=== PATIENT | male | born 1980 | race Hispanic/Latino ===

== ENCOUNTER 2016-04-14 21:01 | Emergency (ER) | payer OTHER ==
[~2016-04-14] VITALS: Ht 182.9 cm; Wt 149.7 kg
[~2016-04-14 21:01] MED LIST: AMOXIL500 MG PO; BACTRIM DS 8001 TAB PO; CLINDAMYCIN300 MG PO; ENDOCET 325 MG-1 TA1 PO; HYDROCODONE/ACE1 TA1 PO; IBUPROFEN800 M1 PO; KEFLEX500 MG PO; MOTRIN 600 MG600 MG PO; NORCO 325 MG-51 TAB PO; PERCOCET 325 MG1 TA2 PO; PERCOCET 5-3251 EACH PO; TRAMADOL50 MG PO; VICODIN 500 MG-1 TAB PO; VOLTAREN75 MG PO
[2016-04-14 21:07] VITALS: BP 148/81
[2016-04-14] MEDS ORDERED: PERCOCET 5-3251 EACH PO (22:20)
[2016-04-14] MEDS ORDERED: AMOXICILLIN875 M1 PO (22:20)
[2016-04-14] MEDS ORDERED: IBUPROFEN800 M1 PO (22:20)
--- NOTE | 2016-04-14 22:21 | ED THROAT/DENTAL COMPLAINT ---
History of Present Illness General Chief Complaint: Sore Throat, Dental Pain Stated Complaint: TOOTHACHE Source: patient Exam Limitations: no limitations Vital Signs & Intake/Output Vital Signs & Intake/Output Vital Signs Date Time Temp Pulse Resp B/P Pulse O2 O2 Flow FiO2 Ox Delivery Rate 04/147 Room Air 04/14 2106 98.6 100 16 148/81 97 Room Air ED Intake and Output 04/15 0000 04/14 1200 Intake Total Output Total Balance Patient 330 lb Weight Allergies Coded Allergies: NO KNOWN ALLERGIES (11/21/15) Reconcile Medications Amoxicillin 875 MG TABLET 1 TAB PO BID dental Ibuprofen 800 MG TABLET 1 TAB PO Q8H PRN pain Ibuprofen 800 MG TABLET 1 TAB PO Q8H PRN pain Oxycodone HCl/Acetaminophen (Percocet 5-325 MG Tablet) 5 MG-325 MG TABLET 1 TAB PO Q6H PRN PAIN Triage Note: PT TO ED FOR TOOTHACHE SINCE THURSDAY. Triage Nurses Notes Reviewed? yes HPI: patient is a 35-year-old male presents complaining of left upper dental pain. Patient reports that he was outside in the cold and felt increasing sharp/ throbbing pain. Patient reports that he has had a chipped tooth chronically, the pain has increased over the past couple of days. Positive cold sensitivity. Patient also occasionally has a foul taste in his mouth. Patient has been taking ibuprofen with mild to moderate improvement. Last dose was approximately 2 hours ago. Patient denies fevers, facial swelling, difficulty swallowing. (SANTI MEEHAN) Past History Travel History Traveled to [place] past 21 day No Medical History Any Pertinent Medical History? 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 No (SANTI MEEHAN) Review of Systems Review of Systems Constitutional: Denies: chills, fever. EENTM: Reports: see HPI. Respiratory: Denies: short of breath. Cardiovascular: Denies: chest pain. GI: Denies: abdominal pain. Musculoskeletal: Reports: no symptoms. Skin: Reports: no symptoms. Neurological/Psychological: Reports: no symptoms. Hematologic/Endocrine: Reports: no symptoms. Immunologic/Allergic: Reports: no symptoms. (SANTI MEEHAN) Physical Exam Physical Exam General Appearance: well developed/nourished, alert, awake Head: atraumatic, normal appearance, no facial swelling Eyes: Bilateral: normal appearance, PERRL, EOMI. Ears: Bilateral: canal normal, Tympanic normal. Nose: normal inspection Mouth/Throat: poor dentition diffusely. See diagram Neck: normal inspection, supple, full range of motion Cardiovascular/Respiratory: no respiratory distress Back: normal inspection, normal range of motion Neurologic/Psych: no motor/sensory deficits, awake, alert, oriented x 3, normal gait, normal mood/affect Skin: intact, normal color, warm/dry Diagram Dental: 1) Decayed teeth. Mild gingival inflammation. No visible or palpable abscess. 2) Tenderness Core Measures ACS in differential dx? No Severe Sepsis Present: No Septic Shock Present: No (SANTI MEEHAN) Progress Differential Diagnosis: carious tooth, odontogenic abscess Plan of Care: Patient afebrile, nontoxic-appearing, no facial swelling present. There stable for outpatient follow-up with a dentist. (SANTI MEEHAN) Departure Departure Time of Disposition: 2217 Disposition: HOME OR SELF CARE Condition: Stable Clinical Impression Primary Impression: Toothache Referrals: PATIENT HAS NO PRIMARY CARE DR (PCP/Family) Additional Instructions: Follow-up with one of the dental clinics listed in your discharge work. Call today for appointment. Return to the emergency department if facial swelling, difficulty swallowing, fevers, or worsening of symptoms. Departure Forms: Customer Survey General Discharge Information Prescriptions: Current Visit Scripts Ibuprofen 1 TAB PO Q8H PRN pain #30 TAB Amoxicillin 1 TAB PO BID #14 TAB Oxycodone HCl/Acetaminophen (Percocet 5-325 MG Tablet) 1 TAB PO Q6H PRN PAIN #10 TAB (SANTI MEEHAN) PA/MUSHROOM FARMER Co-Sign Statement Statement: ED Attending supervision documentation- [] I saw and evaluated the patient. I have also reviewed all the pertinent lab results and diagnostic results. I agree with the findings and the plan of care as documented in the PA's/MUSHROOM FARMER's documentation. [X] I have reviewed the ED Record and agree with the PA's/MUSHROOM FARMER's documentation. [] Additions or exceptions (if any) to the PAs/MUSHROOM FARMER's note and plan are summarized below: [] (IRA WOLF,PAU Huggins)
== END 2016-04-14 22:28 ==
LOC: ERH 21:01
DX: K08.89 Other specified disorders of teeth and supporting structures (principal)

== ENCOUNTER 2016-04-26 12:50 | Emergency (ER) | payer OTHER ==
[~2016-04-26] VITALS: Ht 182.9 cm; Wt 149.7 kg
[~2016-04-26 12:50] MED LIST changes: +AMOXICILLIN875 M1 PO
--- NOTE | 2016-04-26 14:24 | ED UPPER/LOWER EXTREMITY COMPL ---
History of Present Illness General Chief Complaint: Lower Extremity Problems Stated Complaint: BILATERAL LEG SWELLING Source: patient Exam Limitations: no limitations Vital Signs & Intake/Output Vital Signs & Intake/Output Vital Signs Date Time Temp Pulse Resp B/P Pulse O2 O2 Flow FiO2 Ox Delivery Rate 04/26 1605 96.8 81 18 130/74 95 Room Air 04/26 1258 98.0 88 20 120/78 97 Room Air Allergies Coded Allergies: NO KNOWN ALLERGIES (04/26/16) Reconcile Medications Amoxicillin 875 MG TABLET 1 TAB PO BID dental Cephalexin (Keflex) 500 MG CAPSULE 1 CAP PO TID INFECTION Ibuprofen 800 MG TABLET 1 TAB PO Q8H PRN pain Ibuprofen 800 MG TABLET 1 TAB PO Q8H PRN pain Oxycodone HCl/Acetaminophen (Percocet 5-325 MG Tablet) 5 MG-325 MG TABLET 1 TAB PO BID PRN PAIN Oxycodone HCl/Acetaminophen (Percocet 5-325 MG Tablet) 5 MG-325 MG TABLET 1 TAB PO Q6H PRN PAIN Triage Note: TRIAGE: PT TO ER C/C BLE SWELLING X 1 WEEK. FROM KNEES TO FEET. DENIES PAIN WHILE SEATED, REPORTS TINGLING SENSATION WHILE SEATED BUT STATES PAIN IS 7/10 WITH WALKING. TOOK IBUPROFEN THIS MORNING WITH SOME RELIEF NOTED. Triage Nurses Notes Reviewed? yes HPI: 35-year-old male arrived through triaged to room 9 for evaluation of left lower extremity edema, redness and pain in his left calf that started a week ago. History of cellulitis and was concerned of reoccurrence. He denies any fever, chills, nausea, vomiting. He denies any recent travel but he does smoke cigarettes on a daily basis. He denies any recent illness. The pain in his leg as a cramping sensation moderate at this time. (FANY BLANCO APRN) Past History Travel History Traveled to [place] past 21 day No Medical History Any Pertinent Medical History? 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 No (FANY BLANCO APRN) Review of Systems Review of Systems Constitutional: Reports: no symptoms. EENTM: Reports: no symptoms. Respiratory: Reports: no symptoms. Cardiovascular: Reports: edema. Gastrointestinal/Abdominal: Reports: no symptoms. Genitourinary: Reports: no symptoms. Musculoskeletal: Reports: see HPI, muscle pain. Skin: Reports: erythema. Neurological/Psychological: Reports: no symptoms. Hematologic/Endocrine: Reports: no symptoms. Immunological: Reports: no symptoms. All Other Systems: Reviewed and Negative (FANY BLANCO APRN) Physical Exam Physical Exam General Appearance: well developed/nourished, mild distress Head: atraumatic Eyes: Bilateral: PERRL, EOMI. Ears, Nose, Throat: normal pharynx, normal ENT inspection, hearing grossly normal Neck: normal inspection, supple Cardiovascular/Respiratory: regular rate/rhythm Peripheral Pulses: 2+ radial (R), 2+ radial (L), 2+ dorsalis pedis (R), 2+ dorsalis pedis (L) Back: normal inspection Leg Left: normal range of motion, swelling, tenderness, ERYTHEMA Leg Right: normal range of motion, normal inspection Skin: intact, normal color, warm/dry Lymphatic: no anterior cervical dada (FANY BLANCO APRN) Progress Differential Diagnosis: cellulitis, DVT, VENOUS INSUFFICIENCY Plan of Care: Orders Procedure Date/time Status PARTIAL THROMBOPLASTIN TIME 04/26 1425 Complete PROTHROMBIN TIME 04/26 1425 Complete COMPREHENSIVE METABOLIC PANEL 04/26 1425 Complete CBC WITHOUT DIFFERENTIAL 04/26 1425 Complete Laboratory Tests 04/26/16 1534: PT 11.2, INR 1.07, APTT 32, CBC w Diff NO MAN DIFF REQ, RBC 4.81, MCV 90.5, MCH 29.8, RDW 14.1, MPV 8.2, Gran % 64.6, Lymphocytes % 25.7, Monocytes % 8.2, Eosinophils % 1.2, Basophils % 0.3, Absolute Granulocytes 7.2 H, Absolute Lymphocytes 2.9, Absolute Monocytes 0.9 H, Absolute Eosinophils 0.1, Absolute Basophils 0, PUBS MCHC 33.0 04/26/16 1532: Anion Gap 10, Estimated GFR > 60, BUN/Creatinine Ratio 14.3, Glucose 84, Calcium 9.0, Total Bilirubin 0.5, AST 38, ALT 56, Alkaline Phosphatase 95, Total Protein 7.2, Albumin 3.9, Globulin 3.3, Albumin/Globulin Ratio 1.2 Diagnostic Imaging: Viewed by Me: Ultrasound. Discussed w/RAD: Ultrasound. Comments: PATIENT: JOVITA MACEDO PRESENT AGE: 35 PATIENT ACCOUNT NO: [id number] : 80 LOCATION: [facility] ORDERING PHYSICIAN: FANY BLANCO APRN SERVICE DATE: 04/26/16 EXAM TYPE: US - US-UNILATERAL VENOUS DOPPLER EXAMINATION: US TRIPLEX LOWER EXTREMITY, LEFT CLINICAL INFORMATION: Left lower extremity pain, swelling, redness. COMPARISON: None TECHNIQUE: Color-flow triplex imaging with spectral analysis and compression Doppler were performed on the left lower extremity. FINDINGS: Respiratory variation, normal compression and augmented flow are noted throughout the lower extremity. The visualized common femoral vein, superficial femoral vein, profunda femoral vein, popliteal vein and midcalf peroneal and posterior tibial venous segments show no evidence of deep venous thrombosis. There is no Zapata's cyst. IMPRESSION: Normal triplex scan without evidence of deep venous thrombosis involving the left lower extremity. DICTATED BY: COLTON BRAVO MD DATE/TIME DICTATED:04/26/161539 LENS MOUNTER:SHAMA DATE/TIME TRANSCRIBED:04/26/161539 CONFIDENTIAL, DO NOT COPY WITHOUT APPROPRIATE AUTHORIZATION. <Electronically signed in Other Vendor System> SIGNED BY: COLTON BRAVO MD 04/26/16 538 1700 p.m. explaining results are Jovita of ultrasound and blood work. He will be discharged home with follow-up Dr. Valencia. Will start on Keflex 500 mg 3 times a day for the next 10 days and Percocet as needed for pain. No evidence of MRSA or concerning risk factors for MRSA. Encouraged him to follow up with a primary care provider (FANY BLANCO APRN) Departure Departure Time of Disposition: 1700 Disposition: HOME OR SELF CARE Condition: Stable Clinical Impression Primary Impression: Cellulitis Qualifiers: Site of cellulitis: extremity Site of cellulitis of extremity: lower extremity Laterality: left Qualified Code: L03.116 - Cellulitis of left lower limb Referrals: CHERYL VALENCIA MD Additional Instructions: Percocet as needed for pain. Please take antibiotic as prescribed. Please follow up with Dr. Valencia within this past next week. Departure Forms: Customer Survey General Discharge Information Prescriptions: Current Visit Scripts Cephalexin (Keflex) 1 CAP PO TID #30 CAP Oxycodone HCl/Acetaminophen (Percocet 5-325 MG Tablet) 1 TAB PO BID PRN PAIN #10 TAB (FANY BLANCO APRN) PA/RESIDENT CARE TECHNICIAN Co-Sign Statement Statement: ED Attending supervision documentation- [] I saw and evaluated the patient. I have also reviewed all the pertinent lab results and diagnostic results. I agree with the findings and the plan of care as documented in the PA's/RESIDENT CARE TECHNICIAN's documentation. X] I have reviewed the ED Record and agree with the PA's/RESIDENT CARE TECHNICIAN's documentation. [] Additions or exceptions (if any) to the PAs/RESIDENT CARE TECHNICIAN's note and plan are summarized below: [] (IRA WOLF,PAU Huggins)
--- NOTE | 2016-04-26 15:44 | ULTRASOUND REPORT ---
EXAMINATION: US TRIPLEX LOWER EXTREMITY, LEFT CLINICAL INFORMATION: Left lower extremity pain, swelling, redness. COMPARISON: None TECHNIQUE: Color-flow triplex imaging with spectral analysis and compression Doppler were performed on the left lower extremity. FINDINGS: Respiratory variation, normal compression and augmented flow are noted throughout the lower extremity. The visualized common femoral vein, superficial femoral vein, profunda femoral vein, popliteal vein and midcalf peroneal and posterior tibial venous segments show no evidence of deep venous thrombosis. There is no Zapata's cyst. IMPRESSION: Normal triplex scan without evidence of deep venous thrombosis involving the left lower extremity.
[2016-04-26 15:56] LABS: ABSOLUTE BASOPHIL COUNT 0 /CUMM (0.0-0.2); ABSOLUTE EOSINOPHIL COUNT 0.1 /CUMM (0.0-0.7); ABSOLUTE GRANULOCYTE CT 7.2 /CUMM (1.4-6.5); ABSOLUTE LYMPH COUNT 2.9 /CUMM (1.2-3.4); ABSOLUTE MONOCYTE COUNT 0.9 /CUMM (0.10-0.60); BASOPHIL % 0.3 % (0.0-2.0); EOSINOPHIL % 1.2 % (0-5); GRANULOCYTE % 64.6 % (42.2-75.2); HEMATOCRIT 43.5 % (42-52); MEAN CORPUSCULAR HGB 29.8 PG (27.0-31.0); MEAN CORPUSCULAR VOLUME 90.5 FL (80.0-94.0); MEAN PLATELET VOLUME 8.2 FL (7.4-10.4); PLATELET COUNT 302 /CUMM (130-400); RBC DISTRIBUTION WIDTH 14.1 % (11.5-14.5); RED BLOOD CELL CT 4.81 /CUMM (4.70-6.10); WHITE BLOOD CELL COUNT 11.2 /CUMM (4.8-10.8)
[2016-04-26 16:05] VITALS: BP 130/74
[2016-04-26 16:09] LABS: PT 11.2 SEC (9.4-12.5); PTT 32 SEC (25-37)
[2016-04-26] MEDS ORDERED: KEFLEX500 M1 PO (17:05)
[2016-04-26] MEDS ORDERED: PERCOCET 5-3251 EACH PO (17:07)
== END 2016-04-26 17:18 ==
LOC: ERH 12:50
PROVIDERS: Nurse Practitioner Family
DX: L03.116 Cellulitis of left lower limb (principal)

== ENCOUNTER 2016-06-27 10:44 | Emergency (ER) | payer OTHER ==
[~2016-06-27] VITALS: Ht 182.9 cm; Wt 145.2 kg
[~2016-06-27 10:44] MED LIST changes: +KEFLEX500 M1 PO
--- NOTE | 2016-06-27 11:34 | ED UPPER/LOWER EXTREMITY COMPL ---
History of Present Illness General Chief Complaint: General Adult Stated Complaint: BILATERAL EDEMA Source: patient Exam Limitations: no limitations Vital Signs & Intake/Output Vital Signs & Intake/Output Vital Signs Date Time Temp Pulse Resp B/P B/P Pulse O2 O2 Flow FiO2 Mean Ox Delivery Rate 06/27 1136 Room Air 06/27 1048 98.6 111 18 165/90 98 Room Air Allergies Coded Allergies: NO KNOWN ALLERGIES (04/26/16) Reconcile Medications Furosemide (Lasix) 20 MG TABLET 1 TAB PO DAILY PRN LEG EDEMA Triage Note: 35 Y/O MALE C/O BILATERAL LOWER EXTREMITY EDEMA X 1 WEEK; STATES HE WAS TREATED 2 MONTHS AGO FOR CELLULITIS AND THIS IS SIMILIAR. AFEBRILE. C/O PAIN IN L LOWER EXTREMITY. Triage Nurses Notes Reviewed? yes Onset: Gradual Duration: constant Timing: recent history Severity: moderate Severity Numbers: 5 Method of Injury: unknown HPI: Patient is a 35-year-old male who presents to emergency room with concerns of a 10 day history of gradual onset of persistent bilateral leg below the knee to the feet swelling. Patient states that he had similar episode in April 2016 with leg swelling however he was diagnosed with cellulitis symptoms had resolved after antibiotics. Patient denies any fever chills redness to his legs hemoptysis shortness of breath cough recent travel or recent surgery history of DVT or PE or hemoptysis. Patient states that he has generalized leg fullness sensation however denies any worsening symptoms upon ambulation or dyspnea on exertion. Denies any leg paresthesia or weakness. Past History Travel History Traveled to [place] past 21 day No Medical History Any Pertinent Medical History? 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 No Review of Systems Review of Systems Constitutional: Reports: no symptoms. EENTM: Reports: no symptoms. Respiratory: Reports: no symptoms. Cardiovascular: Reports: see HPI, peripheral edema. Gastrointestinal/Abdominal: Reports: no symptoms. Genitourinary: Reports: no symptoms. Musculoskeletal: Reports: no symptoms. Skin: Reports: no symptoms. Neurological/Psychological: Reports: no symptoms. Hematologic/Endocrine: Reports: no symptoms. Immunological: Reports: no symptoms. All Other Systems: Reviewed and Negative Physical Exam Physical Exam General Appearance: no apparent distress, obese Comments: Well-developed well-nourished person in no acute distress HEENT: Normal EENT exam Neck: Supple, no lymphadenopathy, normal range of motion without pain or tenderness Back: Nontender, no CVA tenderness. Cardiovascular: Regular rate and rhythms no murmurs rubs or gallops, normal JVP Respiratory: Chest nontender. No respiratory distress.breath sounds clear to auscultation bilaterally Abdomen: Soft, nontender nondistended, no appreciable organomegaly. Normal bowel sounds. No ascites Extremity: Bilateral below the knee to the feet nonpitting mild swelling noted no calf tenderness to palpation, normal and equal pulses. Pedal pulses intact dermatomes intact Neuro: Alert oriented x3, motor sensory normal, Skin: No appreciable rash on exposed skin, skin is warm and dry. Psych: Mood and affect is normal, memory and judgment is normal. Progress Differential Diagnosis: arterial insufficiency, cellulitis, CHF, compartment syndrome, contusion, dislocation, DVT, fracture, gout, septic arthritis, sprain, tendon injury Plan of Care: Orders Procedure Date/time Status URINALYSIS 06/27 113 Complete COMPREHENSIVE METABOLIC PANEL 06/27 113 Complete CBC WITHOUT DIFFERENTIAL 06/27 1138 Complete Laboratory Tests 06/27/16 1305: Urine Color YEL, Urine Clarity CLEAR, Urine pH 7.0, Ur Specific Hamer 1.015, Urine Protein NEG, Urine Ketones NEG, Urine Nitrite NEG, Urine Bilirubin NEG, Urine Urobilinogen 0.2, Ur Leukocyte Esterase NEG, Ur Microscopic SEDIMENT EXAMINED, Urine RBC 3-5, Ur Epithelial Cells RARE, Urine Bacteria FEW H, Urine Hemoglobin TRACE-INTACT H, Urine Glucose NEG 06/27/16 1152: Anion Gap 10, Estimated GFR > 60, BUN/Creatinine Ratio 13.8, Glucose 89, Calcium 9.3, Total Bilirubin 0.6, AST 32, ALT 51, Alkaline Phosphatase 90, Total Protein 7.4, Albumin 4.1, Globulin 3.3, Albumin/Globulin Ratio 1.2, CBC w Diff NO MAN DIFF REQ, RBC 4.88, MCV 90.8, MCH 30.6, RDW 14.4, MPV 8.3, Gran % 67.6, Lymphocytes % 23.8, Monocytes % 7.0, Eosinophils % 1.3, Basophils % 0.3, Absolute Granulocytes 6.8 H, Absolute Lymphocytes 2.4, Absolute Monocytes 0.7 H, Absolute Eosinophils 0.1, Absolute Basophils 0, PUBS MCHC 33.7 Patient currently is resting comfortably and in no apparent distress no signs on exam of infectious process or cellulitis. Patient had unremarkable ultrasound and blood work. Patient ambulated with no change in symptoms. Denies any cardiovascular or respiratory complaints. Patient was strongly advised to follow up with primary care doctor to establish as directed and instructions. He was given a short course of Lasix for concerns of dependent edema. (ZHOU DOW,SHALINI) Diagnostic Imaging: Viewed by Me: Ultrasound. Radiology Impression: no acute abnormality Comments: PATIENT: JOVITA MACEDO PRESENT AGE: 35 PATIENT ACCOUNT NO: [id number] : 80 LOCATION: [facility] ORDERING PHYSICIAN: SHALINI DOW SERVICE DATE: 06/27/16 EXAM TYPE: US - US-EXT BILAT VENOUS DOPPLER EXAMINATION: US TRIPLEX OF LOWER EXTREMITIES, BILATERAL CLINICAL INFORMATION: Swelling COMPARISON: None TECHNIQUE: Color-flow triplex imaging with spectral analysis and compression Doppler were performed on the lower extremities. FINDINGS: Respiratory variation, normal compression and augmented flow are noted throughout the lower extremities. The visualized common femoral vein, superficial femoral vein, profunda femoral vein, popliteal vein and midcalf peroneal and posterior tibial venous segments show no evidence of deep venous thrombosis. There is no Zapata's cyst. IMPRESSION: Normal triplex scan without evidence of deep venous thrombosis involving the lower extremities. DICTATED BY: MIRIAN LUCIANO MD DATE/TIME DICTATED:06/27/161236 CARDIOLOGY CLINICAL CONSULTANT:SHAMA DATE/TIME TRANSCRIBED:06/27/161236 Departure Departure Disposition: HOME OR SELF CARE Condition: Stable Clinical Impression Primary Impression: Leg edema Referrals: PATIENT HAS NO PRIMARY CARE DR (PCP/Family) Additional Instructions: As discussed today please call the list of [facility] primary care doctors to establish a doctor and to make an appointment to be evaluated for further evaluation treatment. Begin the prescription Lasix as directed for your symptoms of leg swelling. Prescription is waiting at [facility]. Begin to elevate your feet for swelling. If symptoms worsen return to emergency room. Departure Forms: Customer Survey General Discharge Information Prescriptions: Current Visit Scripts Furosemide (Lasix) 1 TAB PO DAILY PRN LEG EDEMA #4 TAB
--- NOTE | 2016-06-27 12:41 | ULTRASOUND REPORT ---
EXAMINATION: US TRIPLEX OF LOWER EXTREMITIES, BILATERAL CLINICAL INFORMATION: Swelling COMPARISON: None TECHNIQUE: Color-flow triplex imaging with spectral analysis and compression Doppler were performed on the lower extremities. FINDINGS: Respiratory variation, normal compression and augmented flow are noted throughout the lower extremities. The visualized common femoral vein, superficial femoral vein, profunda femoral vein, popliteal vein and midcalf peroneal and posterior tibial venous segments show no evidence of deep venous thrombosis. There is no Zapata's cyst. IMPRESSION: Normal triplex scan without evidence of deep venous thrombosis involving the lower extremities.
[2016-06-27 12:53] LABS: ABSOLUTE BASOPHIL COUNT 0 /CUMM (0.0-0.2); ABSOLUTE EOSINOPHIL COUNT 0.1 /CUMM (0.0-0.7); ABSOLUTE GRANULOCYTE CT 6.8 /CUMM (1.4-6.5); ABSOLUTE LYMPH COUNT 2.4 /CUMM (1.2-3.4); ABSOLUTE MONOCYTE COUNT 0.7 /CUMM (0.10-0.60); BASOPHIL % 0.3 % (0.0-2.0); EOSINOPHIL % 1.3 % (0-5); GRANULOCYTE % 67.6 % (42.2-75.2); HEMATOCRIT 44.3 % (42-52); MEAN CORPUSCULAR HGB 30.6 PG (27.0-31.0); MEAN CORPUSCULAR HGB CONC 33.7 G/DL (33.0-37.0); MEAN CORPUSCULAR VOLUME 90.8 FL (80.0-94.0); MEAN PLATELET VOLUME 8.3 FL (7.4-10.4); PLATELET COUNT 301 /CUMM (130-400); RBC DISTRIBUTION WIDTH 14.4 % (11.5-14.5); RED BLOOD CELL CT 4.88 /CUMM (4.70-6.10); WHITE BLOOD CELL COUNT 10.1 /CUMM (4.8-10.8)
[2016-06-27] MEDS ORDERED: LASIX20 M1 PO (12:58)
[2016-06-27 13:24] VITALS: BP 133/71
[2016-06-27] MEDS ORDERED: IBUPROFEN600 M1 PO (13:24)
== END 2016-06-27 13:26 ==
LOC: ERH 10:44
PROVIDERS: Physician Assistant
DX: R60.0 Localized edema (principal)
CPT/HCPCS: 81001; 93970